=== PATIENT | female | born 1970 | race African-American/Black ===

== ENCOUNTER 2018-01-05 19:52 | Emergency (ER) | payer MEDICAID, SELFPAY ==
[2018-01-05] MEDS ORDERED: Lidocaine 1% PF 5 ML VIAL ONE (20:23)
[2018-01-05] MEDS ORDERED: Adacel (T-DAP) 0.5 ML VIAL ONE (21:28)
== END 2018-01-05 21:37 | disposition home or self-care (01) ==
LOC: ERS 19:52
DX: L02.31 Cutaneous abscess of buttock (principal); E11.9 Type 2 diabetes mellitus without complications; Z79.4 Long term (current) use of insulin; Z79.899 Other long term (current) drug therapy
CPT/HCPCS: 10060; 87070; 87077; 87186; 87205; 90471; 90715; J2001

== ENCOUNTER 2021-02-22 09:30 | Outpatient (CLI) | payer BC | END 2021-02-22 09:31 | disposition home or self-care (01) | LOC: BICMAMMO 09:30 | PROVIDERS: ATTEND Nurse Practitioner Family | DX: Z12.31 Encounter for screening mammogram for malignant neoplasm of breast (principal); Z80.3 Family history of malignant neoplasm of breast | CPT/HCPCS: 77063; 77067 ==

== ENCOUNTER 2023-07-30 07:53 | Day surgery (SDC) | payer OTHER ==
[2023-07-29 15:58] VITALS: BMI 25.1
[~2023-07-30 07:53] MED LIST: EPINEPHrine 0.3 MG in Ophthalmic Irrigation Solution 500 ML IRR SCH
[2023-07-30] MEDS ORDERED: Cyclopentolate 2% Opth Drop 15 ML BOT ONE (08:13)
[2023-07-30] MEDS ORDERED: PHENYLephrine 2.5% Ophth Soln 15 ml Bottle ONE (08:13)
[2023-07-30] MEDS ORDERED: Maxitrol 0.1% Opth Oint 3.5 GM TUBE ONE (09:02)
[2023-07-30] MEDS ORDERED: Bupivacaine 0.75% 10 ML VIAL ONE (09:02)
[2023-07-30] MEDS ORDERED: Labetalol HCl 100 MG/20 ML VIAL ONE (09:02)
[2023-07-30] MEDS ORDERED: Lidocaine 1% PF 5 ML VIAL ONE (09:02)
[2023-07-30] MEDS ORDERED: Triamcinolone 40 MG/ML VIAL ONE (09:02)
[2023-07-30] MEDS ORDERED: CEFAZOLIN 1 GM VIAL ONE (09:02)
[2023-07-30] MEDS ORDERED: Lidocaine 4% PF 5 ML AMP ONE (09:02)
[2023-07-30] MEDS ORDERED: PROPOFOL 200 MG/20 ML VIAL ONE (09:02)
[2023-07-30] MEDS ORDERED: Midazolam HCl 2 mg/2 ml Vial ONE (10:13)
== END 2023-07-30 11:42 | disposition home or self-care (01) ==
LOC: SDC 07:53
PROVIDERS: ATTEND Ophthalmology Retina Specialist
PROC: 08T53ZZ Resection of Left Vitreous, Percutaneous Approach (ICD-10-PCS; principal; 2023-07-30)
DX: H33.42 Traction detachment of retina, left eye (principal); E11.9 Type 2 diabetes mellitus without complications; Z88.0 Allergy status to penicillin
CPT/HCPCS: 36416; C1814; J0171; J0690; J2250; J2704; J3301; J3490

== ENCOUNTER 2023-10-07 08:09 | Outpatient (CLI) | payer BC | END 2023-10-07 08:10 | disposition home or self-care (01) | LOC: BICMAMMO 08:09 → EDSTATUS 08:15 | PROVIDERS: ATTEND Nurse Practitioner Family | DX: Z12.31 Encounter for screening mammogram for malignant neoplasm of breast (principal); Z80.3 Family history of malignant neoplasm of breast | CPT/HCPCS: 77063; 77067 ==

== ENCOUNTER 2024-01-21 08:30 | Day surgery (SDC) | payer OTHER ==
[2024-01-20 10:48] VITALS: BMI 28.3
[~2024-01-21 08:30] MED LIST changes: -EPINEPHrine 0.3 MG in Ophthalmic Irrigation Solution 500 ML IRR SCH; +Fluorouracil 100 MG, Enoxaparin 25 MG, EPINEPHrine 0.3 MG in Ophthalmic Irrigation Solu... IRR SCH
[2024-01-21] MEDS ORDERED: Cyclopentolate 1% Opth Drop 2 ML BOT ONE (08:57)
[2024-01-21] MEDS ORDERED: PHENYLephrine 2.5% Ophth Soln 15 ml Bottle ONE (08:57)
[2024-01-21] MEDS ORDERED: fentaNYL PF 100 MCG/2 ML SYRINGE ONE (09:41)
[2024-01-21] MEDS ORDERED: Midazolam HCl 2 mg/2 ml Vial ONE (09:41)
[2024-01-21] MEDS ORDERED: Triamcinolone 40 MG/ML VIAL ONE (10:14)
[2024-01-21] MEDS ORDERED: PROPOFOL 200 MG/20 ML VIAL ONE (10:14)
[2024-01-21] MEDS ORDERED: CEFAZOLIN 1 GM VIAL ONE (10:14)
[2024-01-21] MEDS ORDERED: Lidocaine 4% PF 5 ML AMP ONE (10:14)
[2024-01-21] MEDS ORDERED: Bupivacaine 0.75% 10 ML VIAL ONE (10:14)
[2024-01-21] MEDS ORDERED: Maxitrol 0.1% Opth Oint 3.5 GM TUBE ONE (10:14)
== END 2024-01-21 12:25 | disposition home or self-care (01) ==
LOC: SDC 08:30
PROVIDERS: ATTEND Ophthalmology Retina Specialist
PROC: 08T53ZZ Resection of Left Vitreous, Percutaneous Approach (ICD-10-PCS; principal; 2024-01-21)
DX: H33.42 Traction detachment of retina, left eye (principal); Z88.0 Allergy status to penicillin
CPT/HCPCS: 36416; C1814; J0171; J0690; J1650; J2250; J2704; J3301; J3490; J9190

== ENCOUNTER 2024-11-23 22:01 | Emergency (ER) | payer BC, SELFPAY | END 2024-11-23 23:37 | disposition home or self-care (01) | LOC: ERS 22:01 | DX: E11.621 Type 2 diabetes mellitus with foot ulcer (principal); L97.519 Non-pressure chronic ulcer of other part of right foot with unspecified severity; I10 Essential (primary) hypertension | CPT/HCPCS: 36416; 99283 ==